=== PATIENT | male | born 1955 | race Asian ===

== ENCOUNTER 2017-10-27 07:28 | Emergency (ER) | payer BC, OTHER ==
[~2017-10-27] VITALS: Ht 167.6 cm; Wt 70.0 kg
[~2017-10-27 07:28] MED LIST: ACID1GRA3 PO; ALLO100T30 PO; ALLO300T PO; AMLO10TA4 PO; ASPI-496 PO; HYDR-3240 PO; IRON1TAB60 PO; LISI-170 PO; NIFE90TA PO; OXYC5TAB3 PO; POTA20TA91 PO; PRED20TA PO
[2017-10-27] MEDS ORDERED: FLUO10CA7 PO (07:42)
[2017-10-27] MEDS ORDERED: ACETAMINOPHEN 500 MG TABLET PO ONE (08:00)
[2017-10-27] MEDS ORDERED: ACETAMINOPHEN 500 MG TABLET ONE (08:12)
[2017-10-27 08:34] LABS: RAPID INFLUENZA A POSITIVE (Negative); RAPID INFLUENZA B Negative (Negative)
[2017-10-27 09:14] VITALS: BP 139/89
== END 2017-10-27 09:15 | disposition home or self-care (01) ==
LOC: ED 08:50
DX: J09.X2 Influenza due to identified novel influenza A virus with other respiratory manifestations (principal); G51.0 Bell's palsy; E11.9 Type 2 diabetes mellitus without complications; I10 Essential (primary) hypertension
CPT/HCPCS: 71046; 87081; 87147; 87400; 87880; 99285

== ENCOUNTER 2020-07-25 17:02 | Inpatient (IN) | payer BC, OTHER, MEDICARE ==
[~2020-07-25] VITALS: Ht 167.6 cm; Wt 77.9 kg
[~2020-07-25 17:02] MED LIST changes: +FLUO10CA15 PO
--- NOTE | 2020-07-25 17:50 | NUR ---
assumed care of pt. pt here for cough and SOB. pt states that he went to for a COVID swab a fwe days ago but was contacted and told that the sample leaked and he needed to be swabbed again. he came here for a swab but was founf to be hypoxic on RA pt has non-productive cough, denies CP. mildly anxious but cooperative. Dr. Serrato has been to bedside for eval. CXR at bedside
[2020-07-25] MEDS ORDERED: DEXAMETHASONE 4 MG/ML, 1ML ONE (17:57)
[2020-07-25] MEDS ORDERED: SODIUM CHLORIDE FLUSH 10ML SYR IVF ONE (18:00)
[2020-07-25] MEDS ORDERED: DEXAMETHASONE 4 MG/ML, 1ML IVPush ONE (18:00)
--- NOTE | 2020-07-25 18:00 | NUR ---
lab has been to bedside to draw. pt IV started per order
[2020-07-25 18:20] LABS: BASOPHILS % (AUTO) 0 % (0-1); EOSINOPHILS % (AUTO) 0 % (1-7); LYMPHOCYTES % (AUTO) 13 % (22-44); MEAN CORPUSCULAR HEMOGLOBIN 23.2 pg (27.5-34.5); MEAN PLATELET VOLUME 7.1 fL (7.4-10.4); MONOCYTES % (AUTO) 11 % (2-9); NEUTROPHILS % (AUTO) 76 % (42-75); PLATELET COUNT 208 x10^3/uL (130-400); RED BLOOD COUNT 5.57 x10^6/uL (4.38-5.82); RED CELL DISTRIBUTION WIDTH 15.1 % (9.4-14.8)
[2020-07-25 18:23] LABS: MD NO
[2020-07-25] MEDS ORDERED: AZITHROMYCIN 500 MG in SODIUM CHLORIDE 0.9% 250 ML IV ONE (18:30)
--- NOTE | 2020-07-25 18:30 | NUR ---
pt to be admitted. pt updated on POC. positioning for comfort. no new c/o
[2020-07-25 18:31] LABS: ALANINE AMINOTRANSFERASE 79 U/L (12-78); ALBUMIN 2.7 g/dL (3.4-5.0); ANION GAP 3 mmol/L (5-15); CALCIUM 8.6 mg/dL (8.5-10.1); CHLORIDE 112 mmol/L (98-107); CREATININE 1.23 mg/dL (0.7-1.3)
[2020-07-25 18:33] LABS: ALKALINE PHOSPHATASE 105 U/L (45-117); BILIRUBIN,TOTAL 0.3 mg/dL (0.2-1.0); TOTAL PROTEIN 7.3 g/dL (6.4-8.2)
[2020-07-25] MEDS ORDERED: SODIUM CHLORIDE FLUSH 10ML SYR IVF PRN (19:00)
[2020-07-25] MEDS ORDERED: MULT-658 PO (19:05)
[2020-07-25] MEDS ORDERED: TRAM50TA2 PO (19:05)
[2020-07-25] MEDS ORDERED: GABA600T7 PO (19:05)
[2020-07-25] MEDS ORDERED: OMEP-110 PO (19:05)
[2020-07-25] MEDS ORDERED: HYDR-3653 PO (19:05)
[2020-07-25] MEDS ORDERED: vit c PO (19:05)
[2020-07-25] MEDS ORDERED: LOSA100T14 PO (19:05)
[2020-07-25] MEDS ORDERED: TIZA4CAP PO (19:05)
--- NOTE | 2020-07-25 19:15 | NUR ---
pt resting in position of comfort. aware of POC. awaiting hospitalist to bedside for eval for admission. report to Lakeshia WAYNE
--- NOTE | 2020-07-25 19:19 | NUR ---
REPORT RECEIVED FROM PIETRO WAYNE
[2020-07-25] MEDS ORDERED: ONDANSETRON 2MG/ML, 2ML IVPush PRN (20:30)
[2020-07-25] MEDS ORDERED: ACETAMINOPHEN 325 MG TABLET PO PRN (20:30)
[2020-07-25] MEDS ORDERED: LABETALOL 5MG/ML, 20ML IVPush PRN (20:30)
[2020-07-25] MEDS ORDERED: PHARMACY MAY ADJ FOR RENAL FX MC PRN (20:30)
[2020-07-25] MEDS ORDERED: AZITHROMYCIN 500 MG in SODIUM CHLORIDE 0.9% 250 ML IV SCH (20:30)
[2020-07-25] MEDS ORDERED: POTASSIUM CHLORIDE 20 MEQ TAB.ER.PRT PO ONE (20:30)
--- NOTE | 2020-07-25 20:31 | NUR ---
pt resting in gurney with abx infusion. at bedside
[2020-07-25] MEDS: GABAPENTIN 100 MG CAPSULE PO SCH (21:00)
[2020-07-25] MEDS ORDERED: ENOXAPARIN 40 MG/0.4 ML ONE (21:17)
[2020-07-25] MEDS ORDERED: CEFTRIAXONE PMX 1GM/50ML 50 ML ONE (21:18)
[2020-07-25] MEDS ORDERED: POTASSIUM CHLORIDE 20 MEQ TAB.ER.PRT ONE (21:18)
[2020-07-25] MEDS ORDERED: ASCORBIC ACID 500 MG TABLET ONE (21:18)
[2020-07-25] MEDS ORDERED: MELATONIN 5 MG TABLET ONE (21:18)
[2020-07-25] MEDS ORDERED: THIAMINE 100MG TABLET ONE (21:18)
[2020-07-25] MEDS: THIAMINE 100MG TABLET PO SCH (21:55)
[2020-07-25] MEDS: ASCORBIC ACID 500 MG TABLET PO SCH (21:55)
[2020-07-25] MEDS: MELATONIN 5 MG TABLET PO SCH (21:55)
[2020-07-25] MEDS: CEFTRIAXONE PMX 1GM/50ML 50 ML IV SCH (21:56)
[2020-07-25] MEDS: ENOXAPARIN 40 MG/0.4 ML SQ SCH (21:56)
--- NOTE | 2020-07-25 22:47 | NUR ---
pt states he takes amolodipine at nighttime. okay to change med to hs per [facility]. pt given sandwhich and water
[2020-07-25] MEDS: AMLODIPINE 10 MG TAB PO SCH (23:22)
--- NOTE | 2020-07-25 23:34 | NUR ---
pt on bsc for bm
--- NOTE | 2020-07-26 00:22 | NUR ---
pt placed on hospital bed
--- NOTE | 2020-07-26 01:39 | NUR ---
pt resting in hospital bed. no needs at this time
--- NOTE | 2020-07-26 02:11 | NUR ---
BREAK RN: PT SITTING UPRIGHT ON HOSPITAL BED USING CELL PHONE, NAD, VSS. PT DENIES ANY NEEDS AT THIS TIME. CALL LIGHT AND PERSONAL BELONGINGS WITHIN REACH.
--- NOTE | 2020-07-26 03:00 | NUR ---
PT RESTING, NO NEEDS AT THIS TIME, CALL LIGHT AND PERSONAL BELONGINGS WITHIN REACH
--- NOTE | 2020-07-26 04:23 | NUR ---
PT SLEEPING, NO NEEDS AT THIS TIME. CALL LIGHT AND PERSONAL BELONGINGS WITHIN REACH.
[2020-07-26 04:59] LABS: CALCIUM 8.8 mg/dL (8.5-10.1); CHLORIDE 115 mmol/L (98-107); CREATININE 1.07 mg/dL (0.7-1.3)
[2020-07-26 05:13] LABS: ANION GAP 6 mmol/L (5-15)
--- NOTE | 2020-07-26 05:49 | NUR ---
pt resting comfortably. no needs at this time. call light and personal belonings within reach
--- NOTE | 2020-07-26 06:36 | NUR ---
pt resting in bed, on cell phone. denies needs at this time. call light and personal belonings within reach
--- NOTE | 2020-07-26 06:55 | NUR ---
report given to erendira suh
--- NOTE | 2020-07-26 07:00 | NUR ---
RECEIVED REPORT FROM JENNIFER. PT UPRIGHT ON HOSPITAL BED WITH EYES CLOSED, NAD WITH EQUAL CHEST RISE/FALL, NO NEEDS AT THIS TIME, CALL LIGHT WITHIN REACH.
[2020-07-26] MEDS ORDERED: THIAMINE 100MG TABLET ONE (07:14)
[2020-07-26] MEDS ORDERED: DEXAMETHASONE 4 MG/ML, 1ML ONE (07:15)
[2020-07-26] MEDS ORDERED: OMEPRAZOLE 20 MG CAPSULE.DR ONE (07:15)
[2020-07-26] MEDS ORDERED: ASCORBIC ACID 500 MG TABLET ONE (07:15)
[2020-07-26] MEDS ORDERED: FLUOXETINE 10 MG CAP ONE (07:15)
[2020-07-26] MEDS ORDERED: CHOLECALCIFEROL 5,000u TAB ONE (07:15)
[2020-07-26] MEDS ORDERED: ZINC SULFATE 220 MG CAPSULE ONE (07:15)
[2020-07-26] MEDS ORDERED: ASPIRIN 81 MG TABLET CHEW ONE (07:16)
--- NOTE | 2020-07-26 08:05 | NUR ---
PT UPRIGHT ON HOSPITAL BED AWAKE & COMFORTABLE, RESPONDS APPROP TO STAFF, NAD WITH SUPPL O2 IN PLACE, COMFORT MEASURES PROVIDED INCL BREAKFAST TRAY GIVEN, CALL LIGHT WITHIN REACH.
[2020-07-26] MEDS ORDERED: ACETAMINOPHEN 325 MG TABLET PO PRN (08:30)
[2020-07-26] MEDS: OMEPRAZOLE 20 MG CAPSULE.DR PO SCH (08:32)
[2020-07-26] MEDS: ALLOPURINOL 100 MG TABLET PO SCH (08:32)
[2020-07-26] MEDS: THIAMINE 100MG TABLET PO SCH (08:32)
[2020-07-26] MEDS: GABAPENTIN 100 MG CAPSULE PO SCH ×3 (08:32→22:01)
[2020-07-26] MEDS: niFEDipine ER 90 MG TAB.ER.24 PO SCH (08:32)
[2020-07-26] MEDS: FLUOXETINE 10 MG CAP PO SCH (08:33)
[2020-07-26] MEDS: LOSARTAN 100 MG TAB PO SCH (08:33)
[2020-07-26] MEDS: CHOLECALCIFEROL 5,000u TAB PO SCH (08:33)
[2020-07-26] MEDS: ZINC SULFATE 220 MG CAPSULE PO SCH (08:33)
[2020-07-26] MEDS: ASPIRIN 81 MG TABLET EC PO SCH (08:34)
[2020-07-26] MEDS: ASCORBIC ACID 500 MG TABLET PO SCH ×2 (08:34→16:08)
[2020-07-26] MEDS: LACTOBACILLUS CHEW TABLET PO SCH ×3 (08:45→22:01)
[2020-07-26] MEDS ORDERED: DEXAMETHASONE 4 MG/ML, 1ML IVPush SCH (09:00)
[2020-07-26] MEDS ORDERED: AMLODIPINE 10 MG TAB PO SCH (09:00)
--- NOTE | 2020-07-26 09:02 | NUR ---
PT REMAINS UPRIGHT ON HOSPITAL BED AWAKE & COMFORTABLE, RESPONDS APPROP TO STAFF, NAD WITH SUPPL O2 IN PLACE, NO NEEDS AT THIS TIME, CALL LIGHT WITHIN REACH.
--- NOTE | 2020-07-26 10:04 | NUR ---
PT UPRIGHT ON HOSPITAL BED AWAKE & COMFORTABLE, OCCAS TEXTING/CALLING ON CELLPHONE, RESPONDS APPROP TO STAFF, NAD WITH SUPPL O2 IN PLACE, NO NEEDS AT THIS TIME, CALL LIGHT WITHIN REACH.
[2020-07-26 10:47] LABS: RAPID INFLUENZA A Negative (Negative); RAPID INFLUENZA B Negative (Negative)
--- NOTE | 2020-07-26 11:05 | NUR ---
PT REMIANS UPRIGHT ON HOSPITAL BED AWAKE & COMFORTABLE, OCCAS TEXTING/CALLING ON CELLPHONE, RESPONDS APPROP TO STAFF, NAD WITH SUPPL O2 IN PLACE, NO NEEDS AT THIS TIME, CALL LIGHT WITHIN REACH.
--- NOTE | 2020-07-26 12:00 | NUR ---
PT UPRIGHT ON HOSPITAL BED AWAKE & COMFORTABLE, WATCHING TV, RESPONDS APPROP TO STAFF, NAD WITH SUPPL O2 IN PLACE, COMFORT MEASURES PROVIDED INCL LUNCH TRAY GIVEN, CALL LIGHT WITHIN REACH.
--- NOTE | 2020-07-26 12:12 | NUR ---
BREAK RN: BLOOD SUGAR 136, NADN, VSS, CALL LIGHT WITHIN REACH, PATIENT RESTING IN HOSPITAL BED WATCHING TV.
[2020-07-26] MEDS: INSULIN LISPRO 100 UNITS/ML, PEN SQ-INSULIN SCH ×3 (12:13→21:00)
--- NOTE | 2020-07-26 13:26 | NUR ---
REPORT GIVEN TO KAELYN
--- NOTE | 2020-07-26 15:41 | NUR ---
MED JANIE FROM PHARMACY.
[2020-07-26] MEDS: SODIUM CHLORIDE 0.9% 1,000 ML IV SCH (16:08)
--- NOTE | 2020-07-26 17:48 | NUR ---
DIET TRAY DELIVERED TO PT. PT SITTING UP ON HOSPITAL BED. PT ON 10L NC WHILE EATING. WILL PLACE PT ON OXYMASK ONCE DONE EATING. PT DENIES FURTHER NEEDS AT THIS TIME.
--- NOTE | 2020-07-26 18:46 | NUR ---
SPOKE W/ HOSPITALIST REGARDING PTS INCREASED DEMAND IN O2. REQUESTING STAT ABG AND RESP CONSULT. TELEPHONE CALL TO RESPIRATORY. ADVISED TO SWITCH TO 10L NON BREATHER. IF PT STARTS TO DESAT ON NONBREATHER RESP SAID TO CALL THEM AND THEY WILL SET UP [employer].
--- NOTE | 2020-07-26 18:52 | NUR ---
HOSPITALIST STATES THAT WE WILL KEEP PT IN ED UNTIL STABILIZED. PER RESP THERAPIST O2 SAT 89-90% GOOD FOR PTS SUSPECTED DX.
--- NOTE | 2020-07-26 19:04 | NUR ---
REPORT GIVEN TO YAEL WAYNE. UPDATED ON PLAN FOR ABG, NONBREATHER THEN REASSESS PRIOR TO TRANSFER. PT RESTING ON T[place]alineRNEY W/ CALL LIGHT IN REACH AND SIDE RAILS UPX2. NADN.
--- NOTE | 2020-07-26 19:07 | NUR ---
Patient noted to be resting comfortably at this time. Noted to bed 94% on 10L NRB. Stat ABG drawn, waiting results.
--- NOTE | 2020-07-26 19:19 | NUR ---
ABG back, Provider in to see patient. Agreed patient can go upstairs on the NRB and have Respitory go in to see patient up there. Report called
--- NOTE | 2020-07-26 19:34 | NUR ---
Report given the lasting room supervisor Jerry WAYNE.
[2020-07-26 20:09] VITALS: BP 104/60
[2020-07-26] MEDS: CEFTRIAXONE PMX 1GM/50ML 50 ML IV SCH (22:00)
[2020-07-26] MEDS: ENOXAPARIN 40 MG/0.4 ML SQ SCH (22:01)
[2020-07-26] MEDS: MELATONIN 5 MG TABLET PO SCH (22:01)
[2020-07-26] MEDS: AMLODIPINE 10 MG TAB PO SCH (22:01)
[2020-07-27 00:18] VITALS: BP 99/57
[2020-07-27 06:47] VITALS: BP 102/54
[2020-07-27 07:08] LABS: BASOPHILS % (AUTO) 0 % (0-1); EOSINOPHILS % (AUTO) 0 % (1-7); LYMPHOCYTES % (AUTO) 16 % (22-44); MEAN CORPUSCULAR HEMOGLOBIN 22.7 pg (27.5-34.5); MEAN CORPUSCULAR HGB CONC 31.4 g/dL (33.2-36.2); MEAN PLATELET VOLUME 7.2 fL (7.4-10.4); MONOCYTES % (AUTO) 8 % (2-9); NEUTROPHILS % (AUTO) 76 % (42-75); PLATELET COUNT 213 x10^3/uL (130-400); RED BLOOD COUNT 4.98 x10^6/uL (4.38-5.82); RED CELL DISTRIBUTION WIDTH 15.5 % (9.4-14.8)
[2020-07-27 07:09] LABS: MD NO
[2020-07-27 07:16] LABS: ANION GAP 7 mmol/L (5-15); CALCIUM 8.3 mg/dL (8.5-10.1); CHLORIDE 117 mmol/L (98-107)
[2020-07-27 07:19] LABS: CREATININE 1.15 mg/dL (0.7-1.3)
[2020-07-27] MEDS: ASPIRIN 81 MG TABLET EC PO SCH (08:24)
[2020-07-27] MEDS: LACTOBACILLUS CHEW TABLET PO SCH ×3 (08:24→20:35)
[2020-07-27] MEDS: ALLOPURINOL 100 MG TABLET PO SCH (08:24)
[2020-07-27] MEDS: FLUOXETINE 10 MG CAP PO SCH (08:24)
[2020-07-27] MEDS: THIAMINE 100MG TABLET PO SCH (08:24)
[2020-07-27] MEDS: GABAPENTIN 100 MG CAPSULE PO SCH ×3 (08:24→20:36)
[2020-07-27] MEDS: DEXAMETHASONE 4 MG TABLET PO SCH (08:25)
[2020-07-27] MEDS: LOSARTAN 100 MG TAB PO SCH (08:26)
[2020-07-27] MEDS: ZINC SULFATE 220 MG CAPSULE PO SCH (08:26)
[2020-07-27] MEDS: ASCORBIC ACID 500 MG TABLET PO SCH ×2 (08:27→16:02)
[2020-07-27] MEDS: niFEDipine ER 90 MG TAB.ER.24 PO SCH (08:27)
[2020-07-27] MEDS: CHOLECALCIFEROL 5,000u TAB PO SCH (08:27)
[2020-07-27] MEDS: OMEPRAZOLE 20 MG CAPSULE.DR PO SCH (08:27)
[2020-07-27] MEDS: ENOXAPARIN 80 MG/0.8 ML SQ SCH ×2 (08:29→20:35)
[2020-07-27] MEDS: INSULIN LISPRO 100 UNITS/ML, PEN SQ-INSULIN SCH ×4 (08:29→20:37)
[2020-07-27] MEDS: SODIUM CHLORIDE 0.9% 1,000 ML IV SCH ×2 (08:33→16:00)
[2020-07-27 12:14] VITALS: BP 116/63
[2020-07-27] MEDS: BENZONATATE 100 MG CAPSULE PO SCH ×2 (16:02→20:35)
[2020-07-27] MEDS: CEFTRIAXONE PMX 1GM/50ML 50 ML IV SCH (20:34)
[2020-07-27] MEDS: MELATONIN 5 MG TABLET PO SCH (20:35)
[2020-07-27] MEDS: TIZANIDINE 4MG TABLET PO SCH (20:36)
[2020-07-27] MEDS: AMLODIPINE 10 MG TAB PO SCH (20:36)
[2020-07-27 21:37] VITALS: BP 101/59
[2020-07-28 02:16] VITALS: BP 105/60
[2020-07-28] MEDS: SODIUM CHLORIDE 0.9% 1,000 ML IV SCH ×2 (03:02→16:45)
[2020-07-28 07:05] LABS: BASOPHILS % (AUTO) 1 % (0-1); EOSINOPHILS % (AUTO) 0 % (1-7); LYMPHOCYTES % (AUTO) 16 % (22-44); MEAN CORPUSCULAR HEMOGLOBIN 23.2 pg (27.5-34.5); MEAN CORPUSCULAR HGB CONC 32.1 g/dL (33.2-36.2); MEAN PLATELET VOLUME 6.9 fL (7.4-10.4); MONOCYTES % (AUTO) 8 % (2-9); NEUTROPHILS % (AUTO) 76 % (42-75); PLATELET COUNT 214 x10^3/uL (130-400); RED BLOOD COUNT 4.89 x10^6/uL (4.38-5.82); RED CELL DISTRIBUTION WIDTH 15.6 % (9.4-14.8)
[2020-07-28 07:14] LABS: ANION GAP 6 mmol/L (5-15); CALCIUM 8.5 mg/dL (8.5-10.1); CHLORIDE 117 mmol/L (98-107); CREATININE 1.11 mg/dL (0.7-1.3); MD NO
[2020-07-28] MEDS ORDERED: ASCORBIC ACID 250 MG TAB ONE (07:50)
[2020-07-28 07:51] VITALS: BP 108/67
[2020-07-28] MEDS: LOSARTAN 100 MG TAB PO SCH (08:13)
[2020-07-28] MEDS: FLUOXETINE 10 MG CAP PO SCH (08:13)
[2020-07-28] MEDS: ALLOPURINOL 100 MG TABLET PO SCH (08:13)
[2020-07-28] MEDS: ENOXAPARIN 80 MG/0.8 ML SQ SCH ×2 (08:13→20:43)
[2020-07-28] MEDS: GABAPENTIN 100 MG CAPSULE PO SCH ×3 (08:13→20:43)
[2020-07-28] MEDS: BENZONATATE 100 MG CAPSULE PO SCH ×3 (08:13→20:43)
[2020-07-28] MEDS: niFEDipine ER 90 MG TAB.ER.24 PO SCH (08:14)
[2020-07-28] MEDS: ZINC SULFATE 220 MG CAPSULE PO SCH (08:14)
[2020-07-28] MEDS: DEXAMETHASONE 4 MG TABLET PO SCH (08:14)
[2020-07-28] MEDS: LACTOBACILLUS CHEW TABLET PO SCH ×3 (08:14→20:42)
[2020-07-28] MEDS: ASCORBIC ACID 500 MG TABLET PO SCH ×2 (08:14→16:47)
[2020-07-28] MEDS: THIAMINE 100MG TABLET PO SCH (08:14)
[2020-07-28] MEDS: CHOLECALCIFEROL 5,000u TAB PO SCH (08:14)
[2020-07-28] MEDS: OMEPRAZOLE 20 MG CAPSULE.DR PO SCH (08:15)
[2020-07-28] MEDS: ASPIRIN 81 MG TABLET EC PO SCH (08:15)
[2020-07-28] MEDS: INSULIN LISPRO 100 UNITS/ML, PEN SQ-INSULIN SCH ×4 (08:19→20:44)
[2020-07-28 13:22] VITALS: BP 108/66
[2020-07-28 19:00] VITALS: BP 108/64
[2020-07-28] MEDS: CEFTRIAXONE PMX 1GM/50ML 50 ML IV SCH (20:43)
[2020-07-28] MEDS: AMLODIPINE 10 MG TAB PO SCH (20:43)
[2020-07-28] MEDS: MELATONIN 5 MG TABLET PO SCH (20:43)
[2020-07-28] MEDS: TIZANIDINE 4MG TABLET PO SCH (20:43)
[2020-07-29 00:11] VITALS: BP 104/66
[2020-07-29] MEDS: SODIUM CHLORIDE 0.9% 1,000 ML IV SCH ×2 (02:30→14:00)
[2020-07-29 06:31] VITALS: BP 122/67
[2020-07-29] MEDS: INSULIN LISPRO 100 UNITS/ML, PEN SQ-INSULIN SCH ×4 (07:47→20:45)
[2020-07-29] MEDS: THIAMINE 100MG TABLET PO SCH (09:20)
[2020-07-29] MEDS: ASPIRIN 81 MG TABLET EC PO SCH (09:20)
[2020-07-29] MEDS: BENZONATATE 100 MG CAPSULE PO SCH ×3 (09:20→20:45)
[2020-07-29] MEDS: niFEDipine ER 90 MG TAB.ER.24 PO SCH (09:20)
[2020-07-29] MEDS: DEXAMETHASONE 4 MG TABLET PO SCH (09:20)
[2020-07-29] MEDS: OMEPRAZOLE 20 MG CAPSULE.DR PO SCH (09:20)
[2020-07-29] MEDS: LACTOBACILLUS CHEW TABLET PO SCH ×3 (09:20→20:44)
[2020-07-29] MEDS: ENOXAPARIN 80 MG/0.8 ML SQ SCH ×2 (09:20→20:44)
[2020-07-29] MEDS: ALLOPURINOL 100 MG TABLET PO SCH (09:21)
[2020-07-29] MEDS: ASCORBIC ACID 500 MG TABLET PO SCH ×2 (09:21→17:01)
[2020-07-29] MEDS: FLUOXETINE 10 MG CAP PO SCH (09:21)
[2020-07-29] MEDS: LOSARTAN 100 MG TAB PO SCH (09:21)
[2020-07-29] MEDS: ZINC SULFATE 220 MG CAPSULE PO SCH (09:21)
[2020-07-29] MEDS: GABAPENTIN 100 MG CAPSULE PO SCH ×3 (09:21→20:44)
[2020-07-29] MEDS: CHOLECALCIFEROL 5,000u TAB PO SCH (09:21)
[2020-07-29 12:05] VITALS: BP 115/60
[2020-07-29 19:46] VITALS: BP 106/61
[2020-07-29] MEDS: MELATONIN 5 MG TABLET PO SCH (20:44)
[2020-07-29] MEDS: CEFTRIAXONE PMX 1GM/50ML 50 ML IV SCH (20:44)
[2020-07-29] MEDS: TIZANIDINE 4MG TABLET PO SCH (20:45)
[2020-07-29] MEDS: AMLODIPINE 10 MG TAB PO SCH (20:45)
[2020-07-30 00:09] VITALS: BP 126/73
[2020-07-30] MEDS: SODIUM CHLORIDE 0.9% 1,000 ML IV SCH ×2 (05:21→21:16)
[2020-07-30 06:34] VITALS: BP 129/72
[2020-07-30 07:01] LABS: C-REACTIVE PROTEIN, QUANT 2.5 mg/dL (0.02-0.49)
[2020-07-30] MEDS: INSULIN LISPRO 100 UNITS/ML, PEN SQ-INSULIN SCH ×4 (07:53→20:32)
[2020-07-30] MEDS: DEXAMETHASONE 4 MG TABLET PO SCH (09:02)
[2020-07-30] MEDS: LACTOBACILLUS CHEW TABLET PO SCH ×3 (09:03→21:18)
[2020-07-30] MEDS: CHOLECALCIFEROL 5,000u TAB PO SCH (09:03)
[2020-07-30] MEDS: ASCORBIC ACID 500 MG TABLET PO SCH ×2 (09:03→16:52)
[2020-07-30] MEDS: ZINC SULFATE 220 MG CAPSULE PO SCH (09:03)
[2020-07-30] MEDS: THIAMINE 100MG TABLET PO SCH (09:03)
[2020-07-30] MEDS: FLUOXETINE 10 MG CAP PO SCH (09:03)
[2020-07-30] MEDS: ALLOPURINOL 100 MG TABLET PO SCH (09:03)
[2020-07-30] MEDS: BENZONATATE 100 MG CAPSULE PO SCH ×3 (09:03→21:18)
[2020-07-30] MEDS: niFEDipine ER 90 MG TAB.ER.24 PO SCH (09:03)
[2020-07-30] MEDS: ENOXAPARIN 80 MG/0.8 ML SQ SCH ×2 (09:03→21:17)
[2020-07-30] MEDS: LOSARTAN 100 MG TAB PO SCH (09:03)
[2020-07-30] MEDS: OMEPRAZOLE 20 MG CAPSULE.DR PO SCH (09:04)
[2020-07-30] MEDS: ASPIRIN 81 MG TABLET EC PO SCH (09:04)
[2020-07-30] MEDS: GABAPENTIN 100 MG CAPSULE PO SCH ×3 (11:56→21:18)
[2020-07-30 12:00] VITALS: BP 114/65
[2020-07-30] MEDS ORDERED: ZOLPIDEM 5MG TABLET PO PRN (16:30)
[2020-07-30] MEDS: GUAIFENESIN 200 MG TABLET PO SCH ×2 (16:52→21:17)
[2020-07-30] MEDS ORDERED: DIPHENHYDRAMINE 25 MG CAPSULE PO PRN (17:00)
[2020-07-30 18:59] VITALS: BP 112/63
[2020-07-30] MEDS: CEFTRIAXONE PMX 1GM/50ML 50 ML IV SCH (21:16)
[2020-07-30] MEDS: FAMOTIDINE 20 MG/2 ML IVPush SCH (21:16)
[2020-07-30] MEDS: MELATONIN 5 MG TABLET PO SCH (21:18)
[2020-07-30] MEDS: TIZANIDINE 4MG TABLET PO SCH (21:18)
[2020-07-31 00:23] VITALS: BP 131/71
[2020-07-31] MEDS: GUAIFENESIN 200 MG TABLET PO SCH ×4 (06:04→21:02)
[2020-07-31] MEDS: INSULIN LISPRO 100 UNITS/ML, PEN SQ-INSULIN SCH ×4 (07:00→21:02)
[2020-07-31 07:28] LABS: CALCIUM 8.9 mg/dL (8.5-10.1); CHLORIDE 114 mmol/L (98-107)
[2020-07-31 07:31] LABS: ANION GAP 8 mmol/L (5-15); CREATININE 1.09 mg/dL (0.7-1.3)
[2020-07-31 07:40] VITALS: BP 159/76
[2020-07-31] MEDS: ENOXAPARIN 80 MG/0.8 ML SQ SCH ×2 (08:30→21:01)
[2020-07-31] MEDS ORDERED: HYDROcodone/APAP 5/325 TABLET ONE (08:31)
[2020-07-31] MEDS: FAMOTIDINE 20 MG/2 ML IVPush SCH ×2 (08:42→21:02)
[2020-07-31] MEDS: ASPIRIN 81 MG TABLET EC PO SCH (08:44)
[2020-07-31] MEDS: DEXAMETHASONE 4 MG TABLET PO SCH (08:45)
[2020-07-31] MEDS: BENZONATATE 100 MG CAPSULE PO SCH ×3 (08:45→21:02)
[2020-07-31] MEDS: OMEPRAZOLE 20 MG CAPSULE.DR PO SCH (08:45)
[2020-07-31] MEDS: CHOLECALCIFEROL 5,000u TAB PO SCH (08:45)
[2020-07-31] MEDS: ZINC SULFATE 220 MG CAPSULE PO SCH (08:45)
[2020-07-31] MEDS: GABAPENTIN 100 MG CAPSULE PO SCH ×3 (08:45→21:02)
[2020-07-31] MEDS: LOSARTAN 100 MG TAB PO SCH (08:45)
[2020-07-31] MEDS: ALLOPURINOL 100 MG TABLET PO SCH (08:46)
[2020-07-31] MEDS: LACTOBACILLUS CHEW TABLET PO SCH ×3 (08:46→21:02)
[2020-07-31] MEDS: ASCORBIC ACID 500 MG TABLET PO SCH ×2 (08:46→16:36)
[2020-07-31] MEDS: niFEDipine ER 90 MG TAB.ER.24 PO SCH (08:46)
[2020-07-31] MEDS: THIAMINE 100MG TABLET PO SCH (08:46)
[2020-07-31] MEDS: FLUOXETINE 10 MG CAP PO SCH (08:47)
[2020-07-31] MEDS: SODIUM CHLORIDE 0.9% 1,000 ML IV SCH (11:58)
[2020-07-31 13:10] VITALS: BP 93/53
[2020-07-31 18:31] VITALS: BP 93/50
[2020-07-31 20:21] VITALS: BP 118/69
[2020-07-31] MEDS: CEFTRIAXONE PMX 1GM/50ML 50 ML IV SCH (21:01)
[2020-07-31] MEDS: TIZANIDINE 4MG TABLET PO SCH (21:02)
[2020-07-31] MEDS: MELATONIN 5 MG TABLET PO SCH (21:02)
[2020-08-01 00:18] VITALS: BP 98/53
[2020-08-01] MEDS: SODIUM CHLORIDE 0.9% 1,000 ML IV SCH ×2 (02:44→16:26)
[2020-08-01] MEDS: GUAIFENESIN 200 MG TABLET PO SCH ×4 (05:14→21:05)
[2020-08-01] MEDS: INSULIN LISPRO 100 UNITS/ML, PEN SQ-INSULIN SCH ×4 (07:00→21:04)
[2020-08-01] MEDS: OMEPRAZOLE 20 MG CAPSULE.DR PO SCH (08:12)
[2020-08-01] MEDS: FLUOXETINE 10 MG CAP PO SCH (08:12)
[2020-08-01] MEDS: niFEDipine ER 90 MG TAB.ER.24 PO SCH (08:12)
[2020-08-01] MEDS: LACTOBACILLUS CHEW TABLET PO SCH ×3 (08:12→21:05)
[2020-08-01] MEDS: CHOLECALCIFEROL 5,000u TAB PO SCH (08:12)
[2020-08-01] MEDS: BENZONATATE 100 MG CAPSULE PO SCH ×3 (08:13→21:05)
[2020-08-01] MEDS: GABAPENTIN 100 MG CAPSULE PO SCH ×3 (08:13→21:05)
[2020-08-01] MEDS: ASCORBIC ACID 500 MG TABLET PO SCH ×2 (08:13→16:26)
[2020-08-01] MEDS: THIAMINE 100MG TABLET PO SCH (08:13)
[2020-08-01] MEDS: ASPIRIN 81 MG TABLET EC PO SCH (08:13)
[2020-08-01] MEDS: ENOXAPARIN 80 MG/0.8 ML SQ SCH ×2 (08:13→21:04)
[2020-08-01] MEDS: DEXAMETHASONE 4 MG TABLET PO SCH (08:13)
[2020-08-01] MEDS: ALLOPURINOL 100 MG TABLET PO SCH (08:13)
[2020-08-01] MEDS: FAMOTIDINE 20 MG/2 ML IVPush SCH (08:13)
[2020-08-01] MEDS: ZINC SULFATE 220 MG CAPSULE PO SCH (08:13)
[2020-08-01] MEDS: LOSARTAN 100 MG TAB PO SCH (08:13)
[2020-08-01 09:06] VITALS: BP 117/67
[2020-08-01 13:46] VITALS: BP 108/67
[2020-08-01 19:09] VITALS: BP 95/56
[2020-08-01] MEDS: CEFTRIAXONE PMX 1GM/50ML 50 ML IV SCH (21:03)
[2020-08-01] MEDS: FAMOTIDINE 20 MG TABLET PO SCH (21:05)
[2020-08-01] MEDS: TIZANIDINE 4MG TABLET PO SCH (21:05)
[2020-08-01] MEDS: MELATONIN 5 MG TABLET PO SCH (21:05)
[2020-08-02 00:38] VITALS: BP 116/68
[2020-08-02] MEDS: GUAIFENESIN 200 MG TABLET PO SCH ×4 (05:57→20:09)
[2020-08-02] MEDS: INSULIN LISPRO 100 UNITS/ML, PEN SQ-INSULIN SCH ×4 (07:00→20:08)
[2020-08-02 07:36] VITALS: BP 128/72
[2020-08-02] MEDS: LOSARTAN 100 MG TAB PO SCH (08:08)
[2020-08-02] MEDS: ASPIRIN 81 MG TABLET EC PO SCH (08:08)
[2020-08-02] MEDS: niFEDipine ER 90 MG TAB.ER.24 PO SCH (08:08)
[2020-08-02] MEDS: OMEPRAZOLE 20 MG CAPSULE.DR PO SCH (08:08)
[2020-08-02] MEDS: BENZONATATE 100 MG CAPSULE PO SCH ×3 (08:09→20:09)
[2020-08-02] MEDS: ALLOPURINOL 100 MG TABLET PO SCH (08:09)
[2020-08-02] MEDS: ZINC SULFATE 220 MG CAPSULE PO SCH (08:09)
[2020-08-02] MEDS: FLUOXETINE 10 MG CAP PO SCH (08:10)
[2020-08-02] MEDS: GABAPENTIN 100 MG CAPSULE PO SCH ×3 (08:10→20:09)
[2020-08-02] MEDS: ASCORBIC ACID 500 MG TABLET PO SCH ×2 (08:10→16:59)
[2020-08-02] MEDS: DEXAMETHASONE 4 MG TABLET PO SCH (08:10)
[2020-08-02] MEDS: FAMOTIDINE 20 MG TABLET PO SCH ×2 (08:10→20:09)
[2020-08-02] MEDS: CHOLECALCIFEROL 5,000u TAB PO SCH (08:10)
[2020-08-02] MEDS: ENOXAPARIN 80 MG/0.8 ML SQ SCH ×2 (08:11→20:10)
[2020-08-02] MEDS: THIAMINE 100MG TABLET PO SCH (08:11)
[2020-08-02] MEDS: LACTOBACILLUS CHEW TABLET PO SCH ×3 (08:11→20:09)
[2020-08-02] MEDS: SODIUM CHLORIDE 0.9% 1,000 ML IV SCH ×2 (08:12→22:54)
[2020-08-02 13:57] VITALS: BP 102/62
[2020-08-02 19:14] VITALS: BP 90/51
[2020-08-02] MEDS: MELATONIN 5 MG TABLET PO SCH (20:09)
[2020-08-02] MEDS: CEFTRIAXONE PMX 1GM/50ML 50 ML IV SCH (20:11)
[2020-08-02 20:24] VITALS: BP 121/70
[2020-08-02] MEDS: TIZANIDINE 4MG TABLET PO SCH (22:54)
[2020-08-03 00:15] VITALS: BP 143/72
[2020-08-03 06:18] LABS: BASOPHILS % (AUTO) 1 % (0-1); EOSINOPHILS % (AUTO) 3 % (1-7); LYMPHOCYTES % (AUTO) 21 % (22-44); MEAN CORPUSCULAR HGB CONC 31.8 g/dL (33.2-36.2); MEAN PLATELET VOLUME 7.3 fL (7.4-10.4); MONOCYTES % (AUTO) 11 % (2-9); NEUTROPHILS % (AUTO) 64 % (42-75); PLATELET COUNT 308 x10^3/uL (130-400); RED BLOOD COUNT 5.04 x10^6/uL (4.38-5.82); RED CELL DISTRIBUTION WIDTH 15.5 % (9.4-14.8)
[2020-08-03 06:23] LABS: MD NO
[2020-08-03 06:27] LABS: ANION GAP 5 mmol/L (5-15); CALCIUM 8.6 mg/dL (8.5-10.1); CHLORIDE 113 mmol/L (98-107)
[2020-08-03 06:29] LABS: CREATININE 1.06 mg/dL (0.7-1.3)
[2020-08-03] MEDS: DEXAMETHASONE 4 MG TABLET PO SCH (06:31)
[2020-08-03] MEDS: GUAIFENESIN 200 MG TABLET PO SCH ×4 (06:31→20:53)
[2020-08-03] MEDS: INSULIN LISPRO 100 UNITS/ML, PEN SQ-INSULIN SCH ×4 (07:00→20:54)
[2020-08-03 07:21] VITALS: BP 112/72
[2020-08-03] MEDS: ENOXAPARIN 80 MG/0.8 ML SQ SCH ×2 (08:02→20:52)
[2020-08-03] MEDS: ALLOPURINOL 100 MG TABLET PO SCH (08:02)
[2020-08-03] MEDS: ZINC SULFATE 220 MG CAPSULE PO SCH (08:02)
[2020-08-03] MEDS: GABAPENTIN 100 MG CAPSULE PO SCH ×3 (08:02→20:53)
[2020-08-03] MEDS: FLUOXETINE 10 MG CAP PO SCH (08:02)
[2020-08-03] MEDS: FAMOTIDINE 20 MG TABLET PO SCH ×2 (08:03→20:53)
[2020-08-03] MEDS: LACTOBACILLUS CHEW TABLET PO SCH ×3 (08:03→20:53)
[2020-08-03] MEDS: CHOLECALCIFEROL 5,000u TAB PO SCH (08:03)
[2020-08-03] MEDS: ASCORBIC ACID 500 MG TABLET PO SCH ×2 (08:03→16:12)
[2020-08-03] MEDS: BENZONATATE 100 MG CAPSULE PO SCH ×3 (08:03→20:53)
[2020-08-03] MEDS: LOSARTAN 100 MG TAB PO SCH (08:03)
[2020-08-03] MEDS: THIAMINE 100MG TABLET PO SCH (08:03)
[2020-08-03] MEDS: niFEDipine ER 90 MG TAB.ER.24 PO SCH (08:03)
[2020-08-03] MEDS: ASPIRIN 81 MG TABLET EC PO SCH (08:03)
[2020-08-03] MEDS: OMEPRAZOLE 20 MG CAPSULE.DR PO SCH (08:03)
[2020-08-03] MEDS: SODIUM CHLORIDE 0.9% 1,000 ML IV SCH (12:17)
[2020-08-03 14:22] VITALS: BP 89/53
[2020-08-03 18:48] VITALS: BP 111/68
[2020-08-03] MEDS: CEFTRIAXONE PMX 1GM/50ML 50 ML IV SCH (20:52)
[2020-08-03] MEDS: MELATONIN 5 MG TABLET PO SCH (20:53)
[2020-08-03] MEDS: TIZANIDINE 4MG TABLET PO SCH (20:53)
[2020-08-04 00:30] VITALS: BP 152/80
[2020-08-04] MEDS: SODIUM CHLORIDE 0.9% 1,000 ML IV SCH ×2 (02:46→17:55)
[2020-08-04] MEDS: GUAIFENESIN 200 MG TABLET PO SCH ×4 (05:23→21:00)
[2020-08-04] MEDS: INSULIN LISPRO 100 UNITS/ML, PEN SQ-INSULIN SCH ×4 (07:20→21:25)
[2020-08-04] MEDS: OMEPRAZOLE 20 MG CAPSULE.DR PO SCH (08:11)
[2020-08-04] MEDS: niFEDipine ER 90 MG TAB.ER.24 PO SCH ×2 (08:11→09:00)
[2020-08-04] MEDS: ENOXAPARIN 80 MG/0.8 ML SQ SCH ×2 (08:11→20:57)
[2020-08-04] MEDS: BENZONATATE 100 MG CAPSULE PO SCH ×3 (08:12→21:01)
[2020-08-04] MEDS: LOSARTAN 100 MG TAB PO SCH (08:12)
[2020-08-04] MEDS: ASPIRIN 81 MG TABLET EC PO SCH (08:12)
[2020-08-04] MEDS: ZINC SULFATE 220 MG CAPSULE PO SCH (08:12)
[2020-08-04] MEDS: THIAMINE 100MG TABLET PO SCH (08:12)
[2020-08-04] MEDS: FAMOTIDINE 20 MG TABLET PO SCH ×2 (08:12→21:01)
[2020-08-04] MEDS: DEXAMETHASONE 4 MG TABLET PO SCH (08:13)
[2020-08-04] MEDS: GABAPENTIN 100 MG CAPSULE PO SCH ×3 (08:13→21:00)
[2020-08-04] MEDS: FLUOXETINE 10 MG CAP PO SCH (08:13)
[2020-08-04] MEDS: ASCORBIC ACID 500 MG TABLET PO SCH ×2 (08:13→17:55)
[2020-08-04] MEDS: CHOLECALCIFEROL 5,000u TAB PO SCH (08:13)
[2020-08-04] MEDS: ALLOPURINOL 100 MG TABLET PO SCH (08:13)
[2020-08-04] MEDS: LACTOBACILLUS CHEW TABLET PO SCH ×3 (08:14→21:00)
[2020-08-04 08:16] VITALS: BP 113/56
[2020-08-04 14:31] VITALS: BP 98/56
[2020-08-04 19:50] VITALS: BP 104/63
[2020-08-04] MEDS: CEFTRIAXONE PMX 1GM/50ML 50 ML IV SCH (20:57)
[2020-08-04] MEDS: MELATONIN 5 MG TABLET PO SCH (21:00)
[2020-08-04] MEDS: TIZANIDINE 4MG TABLET PO SCH (21:00)
[2020-08-05 01:14] VITALS: BP 152/68
[2020-08-05] MEDS: GUAIFENESIN 200 MG TABLET PO SCH ×4 (06:04→20:27)
[2020-08-05 06:21] VITALS: BP 166/75
[2020-08-05] MEDS: INSULIN LISPRO 100 UNITS/ML, PEN SQ-INSULIN SCH ×4 (08:09→20:31)
[2020-08-05] MEDS: ENOXAPARIN 80 MG/0.8 ML SQ SCH ×2 (09:07→20:30)
[2020-08-05] MEDS: LOSARTAN 100 MG TAB PO SCH (09:08)
[2020-08-05] MEDS: FAMOTIDINE 20 MG TABLET PO SCH ×2 (09:08→20:28)
[2020-08-05] MEDS: DEXAMETHASONE 4 MG TABLET PO SCH (09:08)
[2020-08-05] MEDS: BENZONATATE 100 MG CAPSULE PO SCH ×3 (09:08→20:29)
[2020-08-05] MEDS: FLUOXETINE 10 MG CAP PO SCH (09:08)
[2020-08-05] MEDS: CHOLECALCIFEROL 5,000u TAB PO SCH (09:08)
[2020-08-05] MEDS: GABAPENTIN 100 MG CAPSULE PO SCH ×3 (09:08→20:28)
[2020-08-05] MEDS: ASCORBIC ACID 500 MG TABLET PO SCH ×2 (09:08→16:56)
[2020-08-05] MEDS: THIAMINE 100MG TABLET PO SCH (09:08)
[2020-08-05] MEDS: ASPIRIN 81 MG TABLET EC PO SCH (09:08)
[2020-08-05] MEDS: ALLOPURINOL 100 MG TABLET PO SCH (09:08)
[2020-08-05] MEDS: LACTOBACILLUS CHEW TABLET PO SCH ×3 (09:08→20:28)
[2020-08-05] MEDS: ZINC SULFATE 220 MG CAPSULE PO SCH (09:08)
[2020-08-05] MEDS: OMEPRAZOLE 20 MG CAPSULE.DR PO SCH (09:09)
[2020-08-05] MEDS: niFEDipine ER 90 MG TAB.ER.24 PO SCH (09:09)
[2020-08-05 12:00] VITALS: BP 104/59
[2020-08-05 20:26] VITALS: BP 115/67
[2020-08-05] MEDS: CEFTRIAXONE PMX 1GM/50ML 50 ML IV SCH (20:27)
[2020-08-05] MEDS: MELATONIN 5 MG TABLET PO SCH (20:28)
[2020-08-05] MEDS: TIZANIDINE 4MG TABLET PO SCH (20:28)
[2020-08-06] VITALS (7 sets, daily range): BP systolic 100–194; BP diastolic 56–83
[2020-08-06] MEDS: GUAIFENESIN 200 MG TABLET PO SCH ×4 (05:17→21:14)
[2020-08-06] MEDS: INSULIN LISPRO 100 UNITS/ML, PEN SQ-INSULIN SCH ×4 (07:00→21:14)
[2020-08-06] MEDS: DEXAMETHASONE 4 MG TABLET PO SCH (08:26)
[2020-08-06] MEDS: ASCORBIC ACID 500 MG TABLET PO SCH ×2 (08:27→17:27)
[2020-08-06] MEDS: LACTOBACILLUS CHEW TABLET PO SCH ×3 (08:28→21:14)
[2020-08-06] MEDS: ENOXAPARIN 80 MG/0.8 ML SQ SCH ×2 (08:28→21:16)
[2020-08-06] MEDS: ALLOPURINOL 100 MG TABLET PO SCH (08:28)
[2020-08-06] MEDS: THIAMINE 100MG TABLET PO SCH (08:29)
[2020-08-06] MEDS: FLUOXETINE 10 MG CAP PO SCH (08:29)
[2020-08-06] MEDS: OMEPRAZOLE 20 MG CAPSULE.DR PO SCH (08:30)
[2020-08-06] MEDS: BENZONATATE 100 MG CAPSULE PO SCH ×3 (08:30→21:13)
[2020-08-06] MEDS: ZINC SULFATE 220 MG CAPSULE PO SCH (08:30)
[2020-08-06] MEDS: FAMOTIDINE 20 MG TABLET PO SCH ×2 (08:30→21:14)
[2020-08-06] MEDS: ASPIRIN 81 MG TABLET EC PO SCH (08:30)
[2020-08-06] MEDS: CHOLECALCIFEROL 5,000u TAB PO SCH (08:30)
[2020-08-06] MEDS: LOSARTAN 100 MG TAB PO SCH (08:43)
[2020-08-06] MEDS: GABAPENTIN 100 MG CAPSULE PO SCH ×3 (11:40→21:14)
[2020-08-06] MEDS ORDERED: hydrALAzine 20 MG/ML, 1ML IV PRN (13:30)
[2020-08-06] MEDS: CEFTRIAXONE PMX 1GM/50ML 50 ML IV SCH (21:13)
[2020-08-06] MEDS: TIZANIDINE 4MG TABLET PO SCH (21:14)
[2020-08-06] MEDS: MELATONIN 5 MG TABLET PO SCH (21:14)
[2020-08-06] MEDS: AMLODIPINE 10 MG TAB PO SCH (21:16)
[2020-08-07 00:46] VITALS: BP 156/79
[2020-08-07] MEDS: GUAIFENESIN 200 MG TABLET PO SCH ×4 (05:51→20:09)
[2020-08-07 06:42] VITALS: BP 155/78
[2020-08-07] MEDS: INSULIN LISPRO 100 UNITS/ML, PEN SQ-INSULIN SCH ×4 (07:00→20:10)
[2020-08-07] MEDS: ALLOPURINOL 100 MG TABLET PO SCH (08:05)
[2020-08-07] MEDS: GABAPENTIN 100 MG CAPSULE PO SCH ×3 (08:05→20:09)
[2020-08-07] MEDS: ZINC SULFATE 220 MG CAPSULE PO SCH (08:05)
[2020-08-07] MEDS: FLUOXETINE 10 MG CAP PO SCH (08:05)
[2020-08-07] MEDS: OMEPRAZOLE 20 MG CAPSULE.DR PO SCH (08:05)
[2020-08-07] MEDS: BENZONATATE 100 MG CAPSULE PO SCH ×3 (08:05→20:09)
[2020-08-07] MEDS: ASPIRIN 81 MG TABLET EC PO SCH (08:05)
[2020-08-07] MEDS: DEXAMETHASONE 4 MG TABLET PO SCH (08:05)
[2020-08-07] MEDS: FAMOTIDINE 20 MG TABLET PO SCH ×2 (08:05→20:09)
[2020-08-07] MEDS: ENOXAPARIN 80 MG/0.8 ML SQ SCH ×2 (08:05→20:09)
[2020-08-07] MEDS: ASCORBIC ACID 500 MG TABLET PO SCH ×2 (08:05→16:26)
[2020-08-07] MEDS: LOSARTAN 100 MG TAB PO SCH (08:05)
[2020-08-07] MEDS: THIAMINE 100MG TABLET PO SCH (08:05)
[2020-08-07] MEDS: LACTOBACILLUS CHEW TABLET PO SCH ×3 (08:05→20:09)
[2020-08-07] MEDS: CHOLECALCIFEROL 5,000u TAB PO SCH (08:06)
[2020-08-07 12:00] VITALS: BP 139/72
[2020-08-07 18:42] VITALS: BP 105/62
[2020-08-07] MEDS: CEFTRIAXONE PMX 1GM/50ML 50 ML IV SCH (20:08)
[2020-08-07] MEDS: AMLODIPINE 10 MG TAB PO SCH (20:09)
[2020-08-07] MEDS: MELATONIN 5 MG TABLET PO SCH (20:09)
[2020-08-07] MEDS: TIZANIDINE 4MG TABLET PO SCH (20:09)
[2020-08-08 00:40] VITALS: BP 143/76
[2020-08-08] MEDS: GUAIFENESIN 200 MG TABLET PO SCH ×2 (05:42→11:30)
[2020-08-08 06:19] LABS: BASOPHILS % (AUTO) 1 % (0-1); EOSINOPHILS % (AUTO) 0 % (1-7); LYMPHOCYTES % (AUTO) 30 % (22-44); MEAN CORPUSCULAR HGB CONC 31.6 g/dL (33.2-36.2); MEAN PLATELET VOLUME 7.4 fL (7.4-10.4); MONOCYTES % (AUTO) 11 % (2-9); NEUTROPHILS % (AUTO) 57 % (42-75); PLATELET COUNT 286 x10^3/uL (130-400); RED CELL DISTRIBUTION WIDTH 15.8 % (9.4-14.8)
[2020-08-08 06:21] LABS: MD NO
[2020-08-08 06:33] LABS: ANION GAP 6 mmol/L (5-15); CALCIUM 9.1 mg/dL (8.5-10.1); CHLORIDE 111 mmol/L (98-107); CREATININE 1.14 mg/dL (0.7-1.3)
[2020-08-08] MEDS: INSULIN LISPRO 100 UNITS/ML, PEN SQ-INSULIN SCH ×2 (08:25→11:29)
[2020-08-08] MEDS: ASPIRIN 81 MG TABLET EC PO SCH (09:01)
[2020-08-08] MEDS: LACTOBACILLUS CHEW TABLET PO SCH (09:01)
[2020-08-08] MEDS: BENZONATATE 100 MG CAPSULE PO SCH (09:01)
[2020-08-08] MEDS: LOSARTAN 100 MG TAB PO SCH (09:01)
[2020-08-08] MEDS: ZINC SULFATE 220 MG CAPSULE PO SCH (09:01)
[2020-08-08] MEDS: OMEPRAZOLE 20 MG CAPSULE.DR PO SCH (09:01)
[2020-08-08] MEDS: GABAPENTIN 100 MG CAPSULE PO SCH (09:01)
[2020-08-08] MEDS: ALLOPURINOL 100 MG TABLET PO SCH (09:01)
[2020-08-08] MEDS: ASCORBIC ACID 500 MG TABLET PO SCH (09:02)
[2020-08-08] MEDS: THIAMINE 100MG TABLET PO SCH (09:02)
[2020-08-08] MEDS: FLUOXETINE 10 MG CAP PO SCH (09:02)
[2020-08-08] MEDS: FAMOTIDINE 20 MG TABLET PO SCH (09:02)
[2020-08-08] MEDS: CHOLECALCIFEROL 5,000u TAB PO SCH (09:02)
[2020-08-08] MEDS: ENOXAPARIN 80 MG/0.8 ML SQ SCH (09:03)
[2020-08-08 09:06] VITALS: BP 104/66
[2020-08-08] MEDS ORDERED: DEXA4TAB66 PO (10:44)
[2020-08-09] MEDS ORDERED: DEXAMETHASONE 4 MG TABLET PO SCH (07:30)
== END 2020-08-08 14:17 | disposition home or self-care (01) | DRG 177 ==
LOC: ED 18:21 → EDIP 19:00 → 4WST 07-26 20:03
PROVIDERS: ADMIT Family Medicine; ATTEND Family Medicine
DX: U07.1 COVID-19 (principal); J96.01 Acute respiratory failure with hypoxia; J12.82 Pneumonia due to coronavirus disease 2019; D53.9 Nutritional anemia, unspecified; E78.5 Hyperlipidemia, unspecified; E87.6 Hypokalemia; G89.29 Other chronic pain; I12.9 Hypertensive chronic kidney disease with stage 1 through stage 4 chronic kidney disease, or unspecified chronic kidney disease; N18.30 Chronic kidney disease, stage 3 unspecified; R73.03 Prediabetes; Z79.891 Long term (current) use of opiate analgesic; Z82.3 Family history of stroke; Z88.0 Allergy status to penicillin; Z88.8 Allergy status to other drugs, medicaments and biological substances
CPT/HCPCS: 36415; 36600; 71045; 80048; 80053; 82728; 82803; 82962; 83036; 83605; 83615; 83735; 83880; 85025; 85379; 86140; 87040; 87400; 93005; 96374; 99285; G0378; J0456; J0696; J1100; J1650; J7030; J7050; U0003

== ENCOUNTER → 2021-03-12 | Outpatient (CLI) | payer BC, OTHER ==
[~2021-03-12] MED LIST changes: +DEXA4TAB66 PO; +GABA600T7 PO; +HYDR-2214 PO; -HYDR-3240 PO; +HYDR-3653 PO; +LOSA100T14 PO; +MULT-658 PO; +OMEP-110 PO; -OXYC5TAB3 PO; +OXYC5TAB98 PO; +TIZA4CAP PO; +TRAM50TA2 PO; +vit c PO
== END | disposition home or self-care (01) ==
LOC: CFH 15:18
PROVIDERS: ATTEND Internal Medicine
DX: R91.8 Other nonspecific abnormal finding of lung field (principal); J84.10 Pulmonary fibrosis, unspecified
CPT/HCPCS: 71250